=== PATIENT | female | born 1955 | race African-American/Black ===

== ENCOUNTER 2021-06-15 06:32 | Day surgery (SDC) | payer OTHER ==
[~2021-06-15] VITALS: Ht 149.9 cm; Wt 63.6 kg
[~2021-06-15 06:32] MED LIST: SODIUM CHLORIDE 0.9% 0 ML ONE; SODIUM CHLORIDE 0.9% 1,000 ML IV ONE; SODIUM CHLORIDE 0.9% 1,000 ML ONE
[2021-06-15] MEDS ORDERED: LIDOCAINE 2% 30 ML JELLY TP ONE (06:33)
[2021-06-15] MEDS ORDERED: ALBUTEROL SULFATE 2.5 MG/0.5 ML NEB SOLUTION NEB ONE (06:33)
[2021-06-15] MEDS ORDERED: BENZOCAINE 20% 50 MCG/SPRAY 57 GM TP ONE (06:33)
[2021-06-15 07:01] LABS: COVID AG,FIA SOURCE NASOPHARYNGEAL
[2021-06-15] MEDS ORDERED: FentaNYL CITRATE PF 100 MCG/2 ML VIAL ONE (07:31)
[2021-06-15] MEDS ORDERED: MIDAZOLAM HCL 2 MG/2 ML VIAL ONE (07:31)
[2021-06-15] MEDS ORDERED: FLUT1BLS9 IH (07:46)
[2021-06-15] MEDS ORDERED: OMEP20 PO (07:46)
[2021-06-15] MEDS ORDERED: MECL-186 PO (07:46)
[2021-06-15] MEDS ORDERED: MethylPREDNISolone SOD SUCC 125 MG/2 ML VIAL IVP ONE (09:15)
[2021-06-15] MEDS ORDERED: MethylPREDNISolone SOD SUCC 125 MG/2 ML VIAL ONE (09:23)
[2021-06-15] MEDS ORDERED: OXYGEN THERAPY IH SCH (20:00)
== END 2021-06-15 11:05 | disposition home or self-care (01) ==
LOC: SURGERY 06:32
PROVIDERS: ATTEND Internal Medicine Critical Care Medicine
DX: J38.4 Edema of larynx (principal); B37.0 Candidal stomatitis; Z90.49 Acquired absence of other specified parts of digestive tract; Z98.890 Other specified postprocedural states; E78.00 Pure hypercholesterolemia, unspecified; M19.90 Unspecified osteoarthritis, unspecified site; Z79.899 Other long term (current) drug therapy
CPT/HCPCS: 31623; 31624; 71045; 87015; 87070; 87077; 87101; 87186; 87205; 87206; 87220; 87426; 88108; 88184; 88185; 88312; C9803; J2250; J2930; J3010; J7030; J7613